=== PATIENT | female | born 1995 | race Caucasian/White ===

== ENCOUNTER 2017-03-08 18:21 | Emergency (ER) | payer MEDICAID, OTHER ==
[~2017-03-08] VITALS: Ht 172.7 cm; Wt 71.7 kg
[~2017-03-08 18:21] MED LIST: ACET500C5 PO; CEPH-443 PO; FAMO-96 PO; NITR-58 PO; ONDA4TAB35 PO
[2017-03-08 18:30] VITALS: Ht 172.7 cm; Wt 71.7 kg
--- NOTE | 2017-03-08 19:52 | ERD ---
ER Documentation Chief Complaint Chief Complaint scratched her L thigh from a "bite" yesterday, (+) abrasion HPI 21-year-old female presents emergency department for left medial thigh/calf redness, swelling. Stated that this started last when she was at the backyard, and she felt like an insect bit her. She complains of pain and itchiness and warmth to touch. Denies headache, dizziness, blurred vision, neck pain, shoulder pain, chest pain , difficulty breathing when lying flat, back pain, abdominal pain, nausea, vomiting, constipation, diarrhea, urinary symptoms, loss of bowel and bladder control, changes in bowel and bladder habits, difficulty walking, recent long travel, exposure to any illness, recent antibiotic use in the last 3 months, fever, chills. ROS All systems reviewed and are negative except as per history of present illness. Medications Home Meds Active Scripts Hydroxyzine Hcl* (Atarax*) 50 Mg Tab, 50 MG PO Q6H Y for ITCHING, #30 TAB Prov:PASILABANJARED 03/08/17 Acetaminophen* (Tylophen*) 500 Mg Capsule, 1 CAP PO Q6H Y for PAIN AND OR ELEVATED TEMP, #20 CAP Prov:PASILABANJARED 03/08/17 Ibuprofen* (Motrin*) 800 Mg Tab, 800 MG PO Q8 Y for PAIN AND OR ELEVATED TEMP, # 30 TAB Prov:PASILABANJARED 03/08/17 Cephalexin* (Keflex*) 500 Mg Capsule, 500 MG PO TID for 7 Days, CAP Prov:PASILABANJARED 03/08/17 Sulfamethoxazole/Trimethoprim* (Bactrim Ds* Tablet) 1 Each Tablet, 1 TAB PO BID for 7 Days, #14 TAB Prov:PASILABANJARED 03/08/17 Acetaminophen* (Tylophen*) 500 Mg Capsule, 1 CAP PO Q6H Y for PAIN AND OR ELEVATED TEMP, #20 CAP Prov:FERMIN NI NP 11/04/15 Famotidine* (Pepcid*) 20 Mg Tablet, 20 MG PO BID for 30 Days, TAB Prov:FERMIN NI NP 11/04/15 Ondansetron Hcl* (Zofran* ODT) 4 mg -ODT Tab.disper, 4 MG PO Q8 Y for NAUSEA AND /OR VOMITING, #30 TAB Prov:FERMIN NI NP 11/04/15 Nitrofurantoin Monohyd Macrocr* (Macrobid*) 100 Mg Capsr, 100 MG PO BID for 7 Days, CAP Prov:FERMIN NI SUGARCANE PLANTER 10/12/15 Acetaminophen* (Tylophen*) 500 Mg Capsule, 1 CAP PO Q6H Y for PAIN AND OR ELEVATED TEMP, #20 CAP Prov:FERMIN NI SUGARCANE [employer]TER 10/12/15 Famotidine* (Pepcid*) 20 Mg Tablet, 20 MG PO BID, #60 TAB Prov:FERMIN NI NP 10/12/15 Ondansetron Hcl* (Zofran* ODT) 4 mg -ODT Tab.disper, 4 MG PO Q8 Y for NAUSEA AND /OR VOMITING, #30 TAB Prov:FERMIN NI NP 10/12/15 Cephalexin* (Keflex*) 500 Mg Capsule, 500 MG PO QID for 7 Days, CAP Prov:ISABEL RAMEY PA-C 09/22/15 Allergies Allergies: Coded Allergies: No Known Allergy (Unverified , 10/12/15) PMhx/Soc Medical and Surgical Hx: pt denies Medical Hx, pt denies Surgical Hx Hx Alcohol Use: No Hx Substance Use: No Hx Tobacco Use: No Smoking Status: Never smoker Physical Exam Vitals Vital Signs Date Time Temp Pulse Resp B/P Pulse Ox O2 Delivery O2 Flow Rate FiO2 03/08/17 20:34 99.0 92 18 106/68 100 Room Air 03/08/17 18:30 98.8 93 18 119/72 100 Physical Exam Const: Well-appearing. Not in acute distress. Head: Atraumatic Eyes: Normal Conjunctiva ENT: Normal External Ears, Nose and Mouth. Neck: Full range of motion..~ No meningismus. Resp: Clear to auscultation bilaterally Cardio: Regular rate and rhythm, no murmurs Abd: Soft, non tender, non distended. Normal bowel sounds Skin: Left inner medial thigh has redness that is warm to touch with mild greenish discharge. No induration. Left medial/tibial aspect has redness/ swelling that is warm to touch. No fluctuance in both sides. No calf tenderness. Negative Homans sign bilaterally. Good pedal pulse bilaterally. Back: No midline or flank tenderness Ext: No cyanosis, or edema Neur: Awake and alert Psych: Normal Mood and Affect Procedures/MDM Case was discussed with supervising physician, Dr. Justus Coffey who also examined the patient and agreed in my medical decision making to discharge patient with Bactrim and Keflex, Atarax, Motrin, Tylenol. I have low suspicion for DVT given to the patient is healthy, no recent long travel no calf tenderness. I have low suspicion for fracture given to the patient is no trauma, injury, falls. Final diagnosis: Cellulitis secondary to possible insect bite. Prescription: Keflex. Bactrim. Atarax. Motrin. Tylenol. PCP in the next 24-48 hours. Come back here in the emergency department for any new symptoms or any worsening of symptoms. All questions and concerns are answered. Patient verbalized understanding and agreed with the plan of care. Hemodynamically stable on discharge. Departure Diagnosis: Primary Impression: Cellulitis Additional Impression: Insect bite Condition: Stable Additional Instructions: PCP in the next 24-48 hours. Come back here in the emergency department for any new symptoms or any worsening of symptoms. All questions and concerns are answered. Patient verbalized understanding and agreed with the plan of care. JARED PADILLA Mar 08, 2017 19:52
[2017-03-08] MEDS ORDERED: SULF1TAB31 PO (19:53)
[2017-03-08] MEDS ORDERED: CEPH-443 PO (19:53)
[2017-03-08] MEDS ORDERED: IBUP800T25 PO (19:54)
[2017-03-08] MEDS ORDERED: ATA50 PO (19:55)
[2017-03-08] MEDS ORDERED: ACET500C5 PO (19:55)
[2017-03-08 20:34] VITALS: BP 106/68; PULSE 92; RESP 18; TEMP 99
== END 2017-03-08 20:38 | disposition home or self-care (01) ==
LOC: FTE 18:21
DX: L03.116 Cellulitis of left lower limb (principal); W57.XXXA Bitten or stung by nonvenomous insect and other nonvenomous arthropods, initial encounter; Y92.9 Unspecified place or not applicable
CPT/HCPCS: 99284